=== PATIENT | female | born 1960 | race Caucasian/White ===

== ENCOUNTER 2022-12-22 17:37 | Emergency (ER) | payer SELFPAY ==
[2022-12-22] VITALS (13 sets, daily range): BP systolic 151–184; BP diastolic 85–95; PULSE 56–63; RESP 14–23; TEMP 36.8; O2SAT 97–100; BMI 19.1
--- NOTE | 2022-12-22 18:06 | XR_ITS ---
The [address] [address] Patient Name: YELITZA JEONG MRN: [id number] date: 1960 Sex: F Assigned Patient Location: ER Current Patient Location: ED.MAIN Accession/Order Number: [id number] Exam Date: 12/22/2022 18:34 Report Date: 12/22/2022 20:00 At the request of: HEMANT EVANS Procedure: XR chest 1V EXAM: XR chest 1V HISTORY: CP COMPARISON: None. TECHNIQUE: AP portable study FINDINGS: The cardiovascular silhouette is normal. Lung iqbal are well-expanded and clear. Pleural spaces are clear. The bony structures are unremarkable. IMPRESSION: No evidence for acute cardiopulmonary disease. Electronically authenticated by: Chacho JAMES Date: 12/22/2022 20:00
--- NOTE | 2022-12-22 18:06 | ECG_ITS ---
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
--- NOTE | 2022-12-22 18:08 | ED.CHESTPAI1 ---
HPI - Chest Pain General Chief Complaint: Chest Pain Stated Complaint: CHEST PAIN Time Seen by Provider: 12/22/22 17:55 Source: patient Mode of arrival: walk-in Limitations: no limitations History of Present Illness HPI narrative: 62-year-old female presents for chest pain. 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 His been having this chest pain intermittently for about two weeks. She had been on an antibiotic and some steroids. She had some dizziness and she was prescribed meclizine by her doctor but she didn't take it because she was scared of it. The pain is described as a pressure and it lasts for a few hours at a time. No trauma. It doesn't radiate. She points to the middle part of her chest indicate area of most pain. Related Data Home Medications Medication Instructions Recorded Confirmed albuterol sulfate 90 mcg/actuation 2 puff inhalation Q6H PRN 12/22/22 12/22/22 aerosol inhaler shortness of breath or wheezing levothyroxine 50 mcg tablet 50 mcg PO DAILY 12/22/22 12/22/22 meclizine 25 mg tablet 12.5 mg PO TID PRN dizziness 12/22/22 12/22/22 triamterene 37.5 1 cap PO DAILY 12/22/22 12/22/22 mg-hydrochlorothiazide 25 mg capsule Allergies Allergy/AdvReac Type Severity Reaction Status Date / Time ciprofloxacin Allergy Intermediate Verified 12/22/22 18:03 clarithromycin Allergy Intermediate Verified 12/22/22 18:03 hydrocodone Allergy Intermediate Verified 12/22/22 18:03 moxifloxacin Allergy Intermediate Verified 12/22/22 18:03 Sulfa (Sulfonamide Allergy Intermediate Verified 12/22/22 18:03 Antibiotics) Review of Systems ROS Narrative A ten point review of systems is negative except as noted above. Exam Narrative Exam Narrative: Nurses note and vital signs reviewed and patient is not hypoxic. General: The patient appears well and in no apparent distress. Patient is resting comfortably on cart. Skin: Warm, dry, no pallor noted. There is no rash noted. Head: Normocephalic, atraumatic Eye: Normal conjunctiva, no drainage Ears, Nose, Mouth, and Throat: oral mucosa is moist. Nares patent. Cardiovascular: Regular Rate and Rhythm Respiratory: Patient is in no distress, no accessory muscle use, lungs are clear to auscultation, no wheezing, rales or rhonchi Back: non-tender GI: no tenderness to palpation, no masses appreciated. No rebound, guarding, or rigidity noted. Musculoskeletal: The patient has no evidence of calf tenderness, no pitting edema, symmetrical pulses noted bilaterally Neurological: A&O Psychiatric: Cooperative Constitutional Vital Signs - 24 hr 12/22/22 17:46 12/22/22 18:48 12/22/22 18:10 Temperature 98.2 F Pulse Rate 63 Pulse Rate [Monitor] 61 Respiratory Rate 18 21 Blood Pressure Blood Pressure [Left Arm] 166/87 H Pulse Oximetry 100 97 Oxygen Delivery Method Room Air Room Air 12/22/22 18:20 12/22/22 18:23 12/22/22 18:24 Temperature Pulse Rate 62 60 63 Pulse Rate [Monitor] Respiratory Rate 16 16 21 Blood Pressure 167/95 H Blood Pressure [Left Arm] Pulse Oximetry 100 100 99 Oxygen Delivery Method 12/22/22 18:31 12/22/22 18:40 Temperature Pulse Rate 62 58 L Pulse Rate [Monitor] Respiratory Rate 23 20 Blood Pressure Blood Pressure [Left Arm] Pulse Oximetry 99 100 Oxygen Delivery Method Course Vital Signs Vital signs: Vital Signs Temperature 98.2 F 12/22/22 17:46 Pulse Rate 61 12/22/22 17:46 Respiratory Rate 18 12/22/22 17:46 Blood Pressure 166/87 H 12/22/22 17:46 Pulse Oximetry 100 12/22/22 17:46 Oxygen Delivery Method Room Air 12/22/22 17:46 Temperature 98.2 F 12/22/22 17:46 Pulse Rate 58 L 12/22/22 18:40 Respiratory Rate 20 12/22/22 18:40 Blood Pressure 167/95 H 12/22/22 18:24 Pulse Oximetry 97 12/22/22 18:48 Oxygen Delivery Method Room Air 12/22/22 18:48 MDM - Chest Pain MDM Narrative Medical decision making narrative: Tests are ordered and the patient is signed out to Dr. Allan. Differential Diagnosis Differential diagnosis: Likely pneumothorax, unstable angina pectoris, atypical chest pain, st elevation myocardial infarction, costochondritis and chest pain ECG Data Attestation: I personally reviewed and interpreted this ECG as follows: (EKG on my interpretation shows sinus rhythm with rate of fifty-seven and no acute changes.) Heart Score History: Moderatly Suspicious ECG: Normal Age: >45-<65 years Risk Factors: 1 or 2 Risk Factors Troponin: <Normal Limit (pending) Total Heart Score Recommendations & Risks:: 3 Discharge Plan Discharge Chief Complaint: Chest Pain Clinical Impression: Chest pain Patient Disposition: Still a Patient Prescriptions / Home Meds: No Action albuterol sulfate 90 mcg/actuation HFA aerosol inhaler 2 puff INHALATION Q6H PRN (Reason: shortness of breath or wheezing) levothyroxine 50 mcg tablet 50 mcg PO DAILY meclizine 25 mg tablet 12.5 mg PO TID PRN (Reason: dizziness) triamterene-hydrochlorothiazid 37.5-25 mg capsule 1 cap PO DAILY Referrals: DIANE ANG [Primary Care Provider] - 1 week
[2022-12-22 18:57] LABS: BUN Creatinine Ratio 15.7; Calcium 9.1 mg/dL (8.5-10.1); Carbon Dioxide 29.3 mmol/L (21.0-32.0); Chloride 98 mmol/L (98-107); Estimated GFR (African America >60 (>=60); Estimated GFR (Non-African Ame >60 (>=60); Glucose 94 mg/dL (74-106); Potassium 3.3 mmol/L (3.5-5.1); Sodium 134 mmol/L (136-145); Troponin I High Sensitivity <4.0 pg/mL (4.0-51.3)
[2022-12-22 18:58] LABS: Basophils Percent Auto 0.3 % (0.2-2.0); Hematocrit 45.3 % (36.0-48.0); Hemoglobin 15.5 g/dL (12.0-16.0); Immature Granulocytes Abs Auto 0.21 10^3/uL (0.00-0.03); Immature Granulocytes Pct Auto 1.5 % (0.0-0.5); Lymphocytes Percent Auto 13.7 % (20.5-60.0); Mean Corpuscular HGB Conc 34.2 g/dL (29.9-35.2); Mean Corpuscular Hemoglobin 29.4 pg (26.7-34.0); Mean Corpuscular Volume 85.8 fL (81.0-99.0); Mean Platelet Volume 9.6 fL (9.5-13.5); Monocytes Percent Auto 7.2 % (1.7-12.0); Neutrophils Absolute Auto 11.1 10^3/uL (1.4-6.5); Neutrophils Percent Auto 77.3 % (43.0-75.0); Platelet Count 242 10^3/uL (150-450); Red Blood Count 5.28 10^6/uL (4.20-5.40); Red Cell Distribution Width 12.3 % (11.0-15.0); White Blood Count 14.4 10^3/uL (4.0-11.0)
[2022-12-22] MEDS: ASPIRIN 81 MG TAB.CHEW 324 MG PO (19:00)
--- NOTE | 2022-12-22 19:28 | ED_ITS ---
HPI - Chest Pain General Chief Complaint: Chest Pain Stated Complaint: CHEST PAIN Time Seen by Provider: 12/22/22 17:55 Source: patient Mode of arrival: walk-in Limitations: no limitations History of Present Illness HPI narrative: This 62-year-old female was signed out to me at shift change pending labs and chest x-ray. She presents for evaluation of 2 weeks of intermittent chest tightness and occasional dizziness. She was prescribed meclizine in the past that she states that she was afraid to take. The patient was seen and evaluated. She is comfortable at this time and states that she has some funny feeling in the left side of her face after taking the 4 baby aspirin. She does take a daily baby aspirin. She is also having intermittent episodes of dizziness still. By way of an associate professor of media arts I discussed her labs and EKG and chest x-ray with her. Her chest x-ray does not show any sign of acute infiiltrate but does show signs of chronic obstructive pulmonary disease. She knows that she has chronic obstruct kuldip pulmonary disease and was recently on an antibiotic and steroid. I reviewed her labs. She has a normal troponin. She has potassium of 3.3. Her white blood cell count is elevated however she just finished a course of oral steroids.She declines the need for any potassium at this time stating that she has at home. She has had tingling in her face before when her potassium was low. I reviewed her labs with her and assured her that her troponin was less than for which is completely normal. The remainder of her labs are normal. She had several other questions that I answered by way of the associate professor of media arts and encouraged her to use her meclizine for the dizziness and follow up next week with Dr. Emery. She is in agreement with this plan. She feels comfortable being discharged home. Related Data Home Medications Medication Instructions Recorded Confirmed albuterol sulfate 90 mcg/actuation 2 puff inhalation Q6H PRN 12/22/22 12/22/22 aerosol inhaler shortness of breath or wheezing levothyroxine 50 mcg tablet 50 mcg PO DAILY 12/22/22 12/22/22 meclizine 25 mg tablet 12.5 mg PO TID PRN dizziness 12/22/22 12/22/22 triamterene 37.5 1 cap PO DAILY 12/22/22 12/22/22 mg-hydrochlorothiazide 25 mg capsule Allergies Allergy/AdvReac Type Severity Reaction Status Date / Time ciprofloxacin Allergy Intermediate Verified 12/22/22 18:03 clarithromycin Allergy Intermediate Verified 12/22/22 18:03 hydrocodone Allergy Intermediate Verified 12/22/22 18:03 moxifloxacin Allergy Intermediate Verified 12/22/22 18:03 Sulfa (Sulfonamide Allergy Intermediate Verified 12/22/22 18:03 Antibiotics) Exam Constitutional Vital Signs - 24 hr 12/22/22 17:46 12/22/22 18:48 12/22/22 18:10 Temperature 98.2 F Pulse Rate 63 Pulse Rate [Monitor] 61 Respiratory Rate 18 21 Blood Pressure Blood Pressure [Left Arm] 166/87 H Pulse Oximetry 100 97 Oxygen Delivery Method Room Air Room Air 12/22/22 18:20 12/22/22 18:23 12/22/22 18:24 Temperature Pulse Rate 62 60 63 Pulse Rate [Monitor] Respiratory Rate 16 16 21 Blood Pressure 167/95 H Blood Pressure [Left Arm] Pulse Oximetry 100 100 99 Oxygen Delivery Method 12/22/22 18:31 12/22/22 18:40 Temperature Pulse Rate 62 58 L Pulse Rate [Monitor] Respiratory Rate 23 20 Blood Pressure Blood Pressure [Left Arm] Pulse Oximetry 99 100 Oxygen Delivery Method Course Vital Signs Vital signs: Vital Signs Temperature 98.2 F 12/22/22 17:46 Pulse Rate 61 12/22/22 17:46 Respiratory Rate 18 12/22/22 17:46 Blood Pressure 166/87 H 12/22/22 17:46 Pulse Oximetry 100 12/22/22 17:46 Oxygen Delivery Method Room Air 12/22/22 17:46 Temperature 98.2 F 12/22/22 17:46 Pulse Rate 58 L 12/22/22 18:40 Respiratory Rate 20 12/22/22 18:40 Blood Pressure 167/95 H 12/22/22 18:24 Pulse Oximetry 97 12/22/22 18:48 Oxygen Delivery Method Room Air 12/22/22 18:48 MDM - Chest Pain MDM Narrative Medical decision making narrative: See HPI Lab Data Labs: Lab Results 12/22/22 Range/Units 18:32 WBC 14.4 H (4.0-11.0) 10^3/uL RBC 5.28 (4.20-5.40) 10^6/uL Hgb 15.5 (12.0-16.0) g/dL Hct 45.3 (36.0-48.0) % MCV 85.8 (81.0-99.0) fL MCH 29.4 (26.7-34.0) pg MCHC 34.2 (29.9-35.2) g/dL RDW 12.3 (11.0-15.0) % Plt Count 242 (150-450) 10^3/uL MPV 9.6 (9.5-13.5) fL Neut % (Auto) 77.3 H (43.0-75.0) % Lymph % (Auto) 13.7 L (20.5-60.0) % [place] % (Auto) 7.2 (1.7-12.0) % Eos % (Auto) 0.0 L (0.9-7.0) % Baso % (Auto) 0.3 (0.2-2.0) % Neut # (Auto) 11.1 H (1.4-6.5) 10^3/uL Lymph # (Auto) 2.0 (1.2-3.8) 10^3/uL [place] # (Auto) 1.0 H (0.3-0.8) 10^3/uL Eos # (Auto) 0.0 (0.0-0.7) 10^3/uL Baso # (Auto) 0.0 (0.0-0.1) 10^3/uL Abs Immat Gran (auto) 0.21 H (0.00-0.03) 10^3/uL Imm/Tot Granulo (auto) 1.5 H (0.0-0.5) % Sodium 134 L (136-145) mmol/L Potassium 3.3 L (3.5-5.1) mmol/L Chloride 98 (98-107) mmol/L Carbon Dioxide 29.3 (21.0-32.0) mmol/L Anion Gap 10.0 BUN 13.0 (7.0-18.0) mg/dL Creatinine 0.83 (0.55-1.02) mg/dL Est GFR ( Amer) >60 (>=60) Est GFR (Non-Af Amer) >60 (>=60) BUN/Creatinine Ratio 15.7 Glucose 94 (74-106) mg/dL Calcium 9.1 (8.5-10.1) mg/dL Troponin I High Sens <4.0 L (4.0-51.3) pg/mL Heart Score History: Slightly/Non-Suspicious ECG: Normal Age: >45-<65 years Risk Factors: 1 or 2 Risk Factors Troponin: <Normal Limit Total Heart Score Recommendations & Risks:: 2 Discharge Plan Discharge Chief Complaint: Chest Pain Clinical Impression: Chest pain, Dizziness, COPD (chronic obstructive pulmonary disease) Patient Disposition: Home, Self-Care Time of Disposition Decision: 19:50 Condition: Good Prescriptions / Home Meds: No Action albuterol sulfate 90 mcg/actuation HFA aerosol inhaler 2 puff INHALATION Q6H PRN (Reason: shortness of breath or wheezing) levothyroxine 50 mcg tablet 50 mcg PO DAILY meclizine 25 mg tablet 12.5 mg PO TID PRN (Reason: dizziness) triamterene-hydrochlorothiazid 37.5-25 mg capsule 1 cap PO DAILY Instructions: COPD (Chronic Obstructive Pulmonary Disease) (ED), Dizziness (ED), Noncardiac Chest Pain (ED) Stand Alone Forms: Portal Instructions Referrals: DIANE EMERY [Primary Care Provider] - 1 week
--- NOTE | 2022-12-22 19:35 | PC.NURSE ---
physician at bedside using supervisor advertising dispatch clerks
== END 2022-12-22 20:20 | disposition home or self-care (01) ==
PROVIDERS: Emergency Medicine; Emergency Provider Emergency Medicine; PCP Family Medicine
DX: R07.9 Chest pain, unspecified (principal); R42 Dizziness and giddiness; J44.9 Chronic obstructive pulmonary disease, unspecified; Z79.899 Other long term (current) drug therapy; H91.93 Unspecified hearing loss, bilateral; Z79.890 Hormone replacement therapy
CPT/HCPCS: 36415; 71045; 80048; 84484; 85025; 93005; 99285

== ENCOUNTER 2023-05-15 13:36 | Outpatient (REF) | payer SELFPAY ==
[2023-05-15 13:59] LABS: Adenovirus NOT DETECTED (NOT DETECTE); Bordetella parapertussis NOT DETECTED (NOT DETECTE); Coronavirus 229E NOT DETECTED (NOT DETECTE); Coronavirus HKU1 NOT DETECTED (NOT DETECTE); Coronavirus NL63 NOT DETECTED (NOT DETECTE); Coronavirus OC43 NOT DETECTED (NOT DETECTE); Human Metapneumovirus NOT DETECTED (NOT DETECTE); Human Rhinovirus/Enterovirus NOT DETECTED (NOT DETECTE); Influenza A NOT DETECTED (NOT DETECTE); Influenza B NOT DETECTED (NOT DETECTE); Mycoplasma pneumoniae NOT DETECTED (NOT DETECTE); Parainfluenza Virus 1 NOT DETECTED (NOT DETECTE); Parainfluenza Virus 2 NOT DETECTED (NOT DETECTE); Parainfluenza Virus 3 NOT DETECTED (NOT DETECTE); Parainfluenza Virus 4 NOT DETECTED (NOT DETECTE); Respiratory Syncytial Virus NOT DETECTED (NOT DETECTE); SARS-CoV-2 NOT DETECTED (NOT DETECTE)
== END 2023-05-15 13:37 | disposition home or self-care (01) ==
LOC: LAB 13:36
PROVIDERS: PCP Family Medicine; Visit Provider Physician Assistant
DX: R05.1 Acute cough (principal)
CPT/HCPCS: 0202U